=== PATIENT | male | born 1975 | race Two or more races ===

== ENCOUNTER 2018-02-24 10:19 | Emergency (ER) | payer SELFPAY ==
[~2018-02-24] VITALS: Ht 190.5 cm; Wt 81.6 kg
[2018-02-24 10:20] VITALS: BP 96/60
[2018-02-24] MEDS ORDERED: Naloxone 1mg/ml 2ml ONE (10:53)
[2018-02-24] MEDS ORDERED: Naloxone 0.4mg/ml Inj ONE (10:58)
[2018-02-24] MEDS ORDERED: Naloxone 0.4mg/ml Inj IVP ONE (11:00)
--- NOTE | 2018-02-24 11:21 | Emergency Room Report ---
History of Present Illness General Chief Complaint: Suicidal Source: Patient Present Illness HPI Pt. was sleeping on bus and brought to ED by EMS. Pt. is hard to talk to as he keeps falling asleep. He denies specific complaint. He states noncompliant with Haldol ?duration. He denies street drugs. He denies trauma. He is homeless. But staying with friend. Poor historian and history limited. No old EMR here. Allergies: Coded Allergies: HALOPERIDOL (Verified Allergy, Mild, 02/24/18) FLUPHENAZINE (Verified Allergy, Unknown, 02/24/18) Nursing Documentation-[facility] Past Medical History: No History, Except For History Of Psychiatric Problem: Yes - bipolar depression Review of Systems Constitutional: Denies: fevers, chills, weakness ENT: Denies: hearing loss, nasal d/c Respiratory: Denies: SOB, cough Cardiovascular: Denies: chest pain, palpitations, syncope Gastrointestinal/Abdominal: Denies: pain, nausea, vomiting, diarrhea, melena, hematemesis Genitourinary: Denies: dysuria, urgency Musculoskeletal: Denies: new bone or joint pain, back problems, swelling Skin: Denies: skin lesions, rash Psychiatric: Denies: no symptoms Neurological: Denies: syncope, SEGURA, seizures, dizziness Endocrine: Denies: no symptoms Hematologic/Lymphatic: Denies: bruising, adenopathy, bleeding diathesis Allergic: Denies: urticaria All Other Systems: limited Physical Exam Vital Signs Date Time Temp Pulse Resp B/P (MAP) Pulse Ox O2 Delivery O2 Flow Rate FiO2 02/24/18 10:10 98.7 66 16 106/76 100 Room Air 98.8 Sp02 EP Interpretation: reviewed, normal General Appearance: no apparent distress, GCS 15, non-toxic Head: atraumatic Eyes: PERRL, lids + conjunctiva normal ENT: hearing intact, no angioedema Neck: supple/symm/no masses, no meningismus Respiratory: effort normal, no wheezing, chest symmetrical Cardiovascular: regular rate, rhythm, no edema Cardiovascular #2: 2+ carotid (R), 2+ carotid (L), 2+ dorsalis pedis (R), 2+ dorsalis pedis (L) Gastrointestinal: non-tender, no mass, non-distended, no rebound/guarding, normal bowel sounds Musculoskeletal: gait & station normal, strength & tone normal, normal ROM, non -tender Neurologic: oriented x3, sensory intact, other - slurring of speech most c/w intoxication/substance abuse. no focal deficits, CRAIG xfour normally spontaneously, PERRL 3 mm, with prodding can answer q correctly Skin: no rash, well hydrated Lymphatic: normal inspection Medical Decision Making Diagnostic Impression: Primary Impression: Substance abuse ER Course DD: hypoglycemia, alcohol intoxication or withdrawal, drug intoxication or withdrawal, trauma, metabolic encephalopathy, psychiatric disorder, psychosis. I suspect substance abuse is causing patient to be sleeping. With 0.4 mg Narcan he was more alert, annoyed, then he fell back asleep. CV/pulm status stable so will let rest in ED. no signs of head trauma. 130 pm: still sleeping, but can arouse to state his name, knows he is in hospital. I anticipate him being alert enough for d/c in 2-3 more hours. Last Vital Signs Date Time Temp Pulse Resp B/P (MAP) Pulse Ox O2 Delivery O2 Flow Rate FiO2 02/24/18 10:20 98.8 58 19 96/60 100 Room Air 98.8 Disposition: HOME, SELF-CARE Condition: Stable Juice Hoover M.D. Feb 24, 2018 11:21
[2018-02-24 11:24] LABS: BASOPHILS % (AUTO) 0.6 % (0.0-2.0); EOSINOPHILS % (AUTO) 6.7 % (0.0-3.0); HEMATOCRIT 35.7 % (42.0-52.0); HEMOGLOBIN 11.1 G/DL (14.2-18.0); LYMPHOCYTES % (AUTO) 17.4 % (20.0-45.0); MEAN CORPUSCULAR VOLUME 81 FL (80-99); NEUTROPHILS % (AUTO) 69.4 % (45.0-75.0); PLATELET COUNT 324 K/UL (150-450); RED BLOOD COUNT 4.41 M/UL (4.70-6.10); RED CELL DISTRIBUTION WIDTH 16.7 % (11.6-14.8); WHITE BLOOD COUNT 9.9 K/UL (4.8-10.8)
[2018-02-24 11:32] LABS: ANION GAP 6 mmol/L (5-15); BLOOD UREA NITROGEN 14 mg/dL (7-18); CALCIUM 8.5 MG/DL (8.5-10.1); CARBON DIOXIDE 29 MMOL/L (21-32); CHLORIDE 105 MMOL/L (98-107); POTASSIUM 3.4 MMOL/L (3.5-5.1); SODIUM 140 MMOL/L (136-145)
[2018-02-24 11:34] LABS: ALANINE AMINOTRANSFERASE 24 U/L (12-78); ALBUMIN 3.6 G/DL (3.4-5.0); ALKALINE PHOSPHATASE 107 U/L (46-116); ASPARTATE AMINO TRANSFERASE 22 U/L (15-37); BILIRUBIN,TOTAL 0.8 MG/DL (0.2-1.0)
[2018-02-24 11:52] LABS: APPEARANCE,URINE CLEAR; BILIRUBIN, URINE NEGATIVE (NEGATIVE); COLOR,URINE AMBER; GLUCOSE, URINE (UA) NEGATIVE (NEGATIVE); KETONES,URINE 1+ (NEGATIVE); LEUKOCYTE ESTERASE ,URINE NEGATIVE (NEGATIVE); NITRITE,URINE NEGATIVE (NEGATIVE); PH,URINE 5 (4.5-8.0); PROTEIN,URINE 2+ (NEGATIVE); UROBILINOGEN,URINE 1 MG/DL (0.0-1.0)
[2018-02-24 15:31] VITALS: BP 130/78
--- NOTE | 2018-02-25 13:38 | Consultation ---
History of Present Illness General Chief Complaint: Suicidal Present Illness HPI the pt is a 43 yo male and was sleeping on bus and brought to ED by EMS. the pt was bib lapd on 5150 the pt was not suicidal nor homicidal and has issues with drug and alcohol. the pt is not psychotic has a home Allergies: Coded Allergies: HALOPERIDOL (Verified Allergy, Mild, 02/24/18) FLUPHENAZINE (Verified Allergy, Unknown, 02/24/18) Patient History Limited by: medical condition History Provided By: Patient, Medical Record, PMD Healthcare decision maker Resuscitation status Advanced Directive on File Review of Systems All Other Systems: negative except mentioned in HPI Physical Exam General Appearance: no apparent distress, alert Neurologic: oriented x 3, normal mood/affect Last 24 Hour Vital Signs Date Time Temp Pulse Resp B/P (MAP) Pulse Ox O2 Delivery O2 Flow Rate FiO2 02/24/18 15:31 98.0 78 18 130/78 98 Room Air Intake and Output 02/24/18 02/25/18 19:00 07:00 Output Total 300 ml Balance -300 ml Output Urine Total 300 ml # Voids 1 Height (Feet): 6 Height (Inches): 3.00 Weight (Pounds): 180 Assessment/Plan Status: stable Assessment/Plan polysubstance dependence not a dts/dto provide ro/st lift 5150 Mara Wilson MD Feb 25, 2018 13:38
== END 2018-02-24 15:39 | disposition home or self-care (01) ==
LOC: EDBD 10:19 → EMR 11:00
DX: F19.10 Other psychoactive substance abuse, uncomplicated (principal); F31.9 Bipolar disorder, unspecified; Z91.14 Patient's other noncompliance with medication regimen; Z59.0 Homelessness; Z88.8 Allergy status to other drugs, medicaments and biological substances
CPT/HCPCS: 36415; 80053; 80307; 81001; 85025; 96374; 99284; G0480; J2310; 80329